=== PATIENT | female | born 1985 | race Caucasian/White ===

== ENCOUNTER → 2019-06-13 | Outpatient (CLI) | payer OTHER ==
--- NOTE | 2019-06-13 13:49 | US ---
EXAMINATION TYPE: Transabdominal DATE OF EXAM: 06/13/2019 1:17 PM COMPARISON: NONE CLINICAL HISTORY: Z36 Confirm dates. Confirm Dates, pt has no complaints at this time EXAM PERFORMED: Transabdominal (TA) EXAM MEASUREMENTS: GESTATIONAL AGE / DATING Physician Established: (8 weeks/6 days) EDC: 01/17/2020 Dates by LMP: (8 weeks/6 days) EDC: 01/17/2020 Dates by First Scan: No prior Dates by Current Scan for: (9 weeks/1 days) EDC: 01/15/2020 MATERNAL ANATOMY Uterus: 12.0 x 9.5 x 9.6 cm Right Ovary: 2.9 x 1.8 x 2.7 cm Left Ovary: 2.1 x 1.4 x 2.0 cm Post CDS / Adnexa: wnl Presence of free fluid: No Presence of corpus luteal cyst: Right Ovary= 1.5 x 1.4 x 1.9 cm GESTATION / SURVEY CRL: 2.4 cm (9 weeks/1 days) MSD: wnl Yolk Sac (normal less than 6mm): 3mm Heart Rate: 158 bpm Rhythm: Normal IUP: Live IUP Single, live IUP/ Complex area posterior to the gestational sac= 1.9 cm, separate from fetus within the myometrium. Additional small 7 mm subchorionic hemorrhage. IMPRESSION: 1. Single live intrauterine with a calculated sonographic age of 9 weeks and 1 day and esau mated date of delivery of 01/15/2020, concordant with menstrual age. 2. Small subchorionic hemorrhage measuring 7 mm, less than 25% the gestational sac diameter. 3. Heterogenous 1.9 cm area in the myometrium, possible small leiomyoma.
== END | disposition home or self-care (01) ==
LOC: RADUSWWP 12:58
PROVIDERS: ATTEND Obstetrics & Gynecology
DX: Z36.87 Encounter for antenatal screening for uncertain dates (principal); O46.91 Antepartum hemorrhage, unspecified, first trimester; Z3A.09 9 weeks gestation of pregnancy
CPT/HCPCS: 76801

== ENCOUNTER 2020-01-04 07:51 | Inpatient (IN) | payer OTHER ==
[2020-01-04] MEDS ORDERED: TERBUTALINE 1 MG/ML VIAL SQ PRN (08:28)
[2020-01-04] MEDS ORDERED: AMPICILLIN 2,000 MG in SODIUM CHLORIDE 0.9% 100 ML IVPB STA (08:28)
[2020-01-04] MEDS ORDERED: METHYLERGONOVINE 0.2 MG/ML 1 ML AMP IM PRN (08:28)
[2020-01-04] MEDS ORDERED: OXYTOCIN 10 UNIT/ML 1 ML VIAL IM PRN (08:28)
[2020-01-04] MEDS ORDERED: LIDOCAINE 0.5% (PF) 5 MG/ML (50 ML SDV) SQ PRN (08:28)
[2020-01-04] MEDS ORDERED: CARBOPROST TROMETHAMINE 250 MCG/ML 1 ML AMP IM PRN (08:28)
[2020-01-04] MEDS ORDERED: LACTATED RINGERS 1,000 ML IV SCH (08:30)
[2020-01-04] MEDS ORDERED: OXYTOCIN 30 UNITS/500 ML NS 30 UNIT in SALINE 1 500ML.BAG IV SCH (08:30)
[2020-01-04 08:53] LABS: Basophils % (A) 1 %; Eosinophils # (A) 0.1 k/uL (0-0.7); Eosinophils % (A) 1 %; HCT 37.2 % (34.0-46.0); HGB 12.5 gm/dL (11.4-16.0); Lymphocytes # (A) 1.1 k/uL (1.0-4.8); Lymphocytes % (A) 20 %; MCH 31.1 pg (25.0-35.0); MCHC 33.6 g/dL (31.0-37.0); MCV 92.5 fL (80.0-100.0); Mean Platelet Volume 8.6; Monocytes # (A) 0.2 k/uL (0-1.0); Monocytes % (A) 4 %; Neutrophils % (A) 71 %; Platelet Count 137 k/uL (150-450); RBC 4.02 m/uL (3.80-5.40); RDW 13.5 % (11.5-15.5); WBC 5.6 k/uL (3.8-10.6)
[2020-01-04] MEDS ORDERED: BUTORPHANOL 1 MG/ML 1 ML VIAL IV PRN (09:13)
--- NOTE | 2020-01-04 11:32 | P.HPOB ---
History of Present Illness H&P Date: 01/04/20 Chief Complaint: Spontaneous rupture of membranes This is a 34-year-old female 5 para 3 with an estimated date of confinement of 01/17/2020, estimated gestational age of 38-2/7 weeks, who presents to labor and delivery with complaints of spontaneous rupture of membra malini at approximately 5:45 AM this morning. She has been feeling irregular contractions since that time. course has been uncomplicated. labs: Hepatitis B surface antigen-negative RPR-nonreactive Rubella-immune Type-A- Antibody screen-negative RhoGAM was given at approximately 28 weeks. Hemoglobin-12.1 Random glucose-89 Obstetrical ultrasound-normal anatomy One hour Glucola-101 Group B streptococcus-positive Obstetrical history: . History of 3 vaginal deliveries at term and 1 miscarriage. Her third delivery was a home delivery of an 8 lbs. 14 oz. infant. Gynecologic history: No history of sexual transmitted diseases. Social history: She is . She is a homemaker. Review of Systems Constitutional: Denies chills, Denies fever Eyes: denies blurred vision, denies pain Ears, nose, mouth and throat: Denies headache, Denies sore throat Cardiovascular: Denies chest pain, Denies shortness of breath Respiratory: Denies cough Gastrointestinal: Reports abdominal pain (Irregular contractions) Genitourinary: Reports pelvic pain, Reports Musculoskeletal: Reports low back pain Integumentary: Denies pruritus, Denies rash Neurological: Denies numbness, Denies weakness Past Medical History Past Medical History: No Reported History Additional Past Medical History / Comment(s): History of a heart murmur History of Any Multi-Drug Resistant Organisms: None Reported Past Surgical History: No Surgical Hx Reported Past Anesthesia/Blood Transfusion Reactions: No Reported Reaction Past Psychological History: No Psychological Hx Reported Smoking Status: Never smoker Past Alcohol Use History: None Reported Past Drug Use History: None Reported - Past Family History Father Family Medical History: Hypertension, Myocardial Infarction (SD) Medications and Allergies Home Medications Medication Instructions Recorded Confirmed Type Loratadine [Claritin] 10 mg PO DAILY 01/04/20 01/04/20 History Pnv No.95/Ferrous Fum/Folic AC 1 each PO DAILY 01/04/20 01/04/20 History [ Multivitamin Tablet] Allergies Allergy/AdvReac Type Severity Reaction Status Date / Time No Known Allergies Allergy Verified 01/04/20 07:59 Exam Osteopathic Statement: *. No significant issues noted on an osteopathic structural exam other than those noted in the History and Physical/Consult. Vital Signs Temp Pulse Resp BP Pulse Ox 01/04/20 08:30 97.2 F L 74 15 125/70 98 Intake and Output 01/03/20 01/04/20 01/04/20 22:59 06:59 14:59 Other: Weight 67.132 kg Gen.: Well-developed well-nourished pleasant female in no acute distress HEENT: Within normal limits Heart: Regular rate and rhythm Lungs: Clear to auscultation bilaterally Abdomen: , nontender Cervix: Initially is 4-5 cm/60%/-2 station with positive clear fluid and positive amnisure. On my check currently she is 6 cm/60%/-2 station with another bag palpated. Artificial rupture membranes is carried out and clear fluid is again noted. heart tones: Category 1 Contractions: Irregular approximately 2-6 minutes apart Extremities: Negative Homans Results Result Diagrams: 01/04/20 08:40 Abnormal Lab Results - Last 24 Hours (Table) 01/04/20 Range/Units 08:40 Plt Count 137 L (150-450) k/uL Assessment and Plan (1) 38 weeks gestation of Current Visit: Yes Status: Acute Code(s): Z3A.38 - 38 WEEKS GESTATION OF SNOMED Code(s): 58909583 (2) Group B Streptococcus carrier, +RV culture, currently Current Visit: Yes Status: Acute Code(s): O99.820 - STREPTOCOCCUS B CARRIER STATE COMPLICATING SNOMED Code(s): 3456884214849 Plan: Admission for early active labor. Antibiotic prophylaxis for group B streptococcus. Expectant management. Oxytocin augmentation of labor.
--- NOTE | 2020-01-04 11:35 | P.MSEPDOC ---
Presenting Problems - Arrival Data Date of Arrival on Unit: 01/04/20 Time of Arrival on Unit: 08:30 Mode of Transport: Ambulatory - Complaint OB-Reason for Admission/Chief Complaint: Rule Out SROM Comment: Pt states that her water broke around 0545 this morning Medical History - Information : 5 Para: 3 Term: 3 : 0 Abortions: Spontaneous or Elective: 1 Number of Living Children: 3 - Gestational Age Gestational Age by MIGUELITO (wks/days): 38 Weeks and 2 Days Review of Systems - Review of Systems Constitutional: No problems Breast: No problems ENT: No problems Cardiovascular: No problems Respiratory: No problems Gastrointestinal: No problems Genitourinary: No problems Musculoskeletal: No problems Neurological: No problems Skin: No problems Vital Signs - Temperature Temperature: 97.2 F Temperature Source: Temporal Artery Scan - Pulse Pulse Oximetery Pulse Rate: 74 Pulse Assessment Method: Auscultation - Respirations Respiratory Rate: 15 O2 Sat by Pulse Oximetry: 98 - Blood Pressure Right Arm Blood Pressure: 125/70 Blood Pressure Mean: 88 Blood Pressure Source: Automatic Cuff Medical Screen Scoring (Pre) - Cervical Exam Dilation: 4-7 cm = 2 Membranes: Ruptured = 3 - Uterine Contractions Frequency: > or = 36 weeks =2 Duration: > 40 seconds = 2 Intensity: N/A - Maternal Vital Signs Maternal Temperature: N/A Maternal Blood Pressure: N/A Signs of Preeclampsia: N/A Maternal Respirations: N/A - Maternal Trauma Maternal Trauma: N/A - Assessment - Baby A Baseline FHR: 135 Heart Rate - NICHD Category: Category I (Normal) = 0 NST: Reactive Position: N/A Station: N/A - Total Score - Baby A Total Score - Baby A: 9 - Total Score - Baby B Total Score - Baby B: 9 - Total Score - Baby C Total Score - Baby C: 9 - Level of Risk - Baby A Level of Risk - Baby A: Medium (6-9) - Level of Risk - Baby B Level of Risk - Baby B: Medium (6-9) - Level of Risk - Baby C Level of Risk - Baby C: Medium (6-9) Physician Notification (Pre) - Physician Notified Physician Notified Date: 01/04/20 Physician Notified Time: 08:20 New Order Received: Yes Disposition - Disposition OB Disposition: Admit, LDRP Suite I agree with the RN Medical Screening Exam: Yes Risk & Benefit of care provided described in d/c instruction: Yes Diagnosis: ENCOUNTER FOR FULL-TERM UNCOMPLICATED DELIVERY
[2020-01-04] MEDS ORDERED: AMPICILLIN 1,000 MG in SODIUM CHLORIDE 0.9% 50 ML IVPB SCH (12:29)
--- NOTE | 2020-01-04 13:23 | P.PROBDLV ---
Vaginal Delivery Note - . Vaginal Delivery Note: The patient progressed to complete dilation after oxytocin augmentation of labor and artificial rupture membranes of a 4 bag. She did receive antibiotic prophylaxis while in labor. Once reaching complete dilation, she began pushing. Infant's head came to a crown. With one further push, the 's head delivered across the perineum followed by the anterior shoulder. Tight nuchal cord times one was doubly clamped and cut and reduced around the . With one further push the remainder the easily delivered and was placed on mother's abdomen. Nose and mouth were bulb suctioned. A viable female infant is noted with scores of 9 at 1 minute and 9 at 5 minutes and infant weight of 7 lbs. 9 oz. Cord blood was obtained secondary to Rh- status. Placenta delivered shortly thereafter, intact, with a three-vessel cord. Uterus contracted well after oxytocin was given and uterine massage was carried out. Inspection of the perineum revealed no perineal lacerations. Estimated blood loss is approximately 100 mL's. Both mother and are in stable condition.
[2020-01-04] MEDS ORDERED: LANOLIN CREAM 5 GM TUBE TOPICAL PRN (13:42)
[2020-01-04] MEDS ORDERED: ZOLPIDEM 5 MG TAB PO PRN (13:42)
[2020-01-04] MEDS ORDERED: SIMETHICONE 80 MG CHEWABLE PO PRN (13:42)
[2020-01-04] MEDS ORDERED: HYDROCORTISONE 2.5% RECTAL CREAM 30 GM TUBE RECTAL PRN (13:42)
[2020-01-04] MEDS ORDERED: diphenhydrAMINE 25 MG CAP PO PRN (13:42)
[2020-01-04] MEDS ORDERED: diphenhydrAMINE 50 MG/ML 1 ML VIAL IVP PRN ×2 (13:42)
[2020-01-04] MEDS ORDERED: diphenhydrAMINE 50 MG CAP PO PRN (13:42)
[2020-01-04] MEDS ORDERED: OXYTOCIN 20 UNITS/1000 ML NS 1,000 ML IV SCH (13:42)
[2020-01-04] MEDS ORDERED: BENZOCAINE/MENTHOL SPRAY 1 GM/SPRAY AEROSOL TOPICAL PRN (13:42)
[2020-01-04] MEDS: IBUPROFEN 600 MG TAB PO PRN ×2 (13:57→20:39)
[2020-01-04] MEDS: ACETAMINOPHEN TAB 325 MG TAB PO PRN (17:11)
[2020-01-05] MEDS: ACETAMINOPHEN TAB 325 MG TAB PO PRN ×2 (00:15→08:15)
[2020-01-05] MEDS: IBUPROFEN 600 MG TAB PO PRN (03:44)
[2020-01-05 04:12] VITALS: RESP 16
[2020-01-05] MEDS: SENNOSIDES-DOCUSATE SODIUM 1 EACH TAB PO SCH ×2 (04:12→08:15)
[2020-01-05 06:29] LABS: Basophils % (A) 0 %; Eosinophils # (A) 0.1 k/uL (0-0.7); Eosinophils % (A) 1 %; HCT 32.9 % (34.0-46.0); HGB 11.1 gm/dL (11.4-16.0); Lymphocytes % (A) 11 %; MCH 31.4 pg (25.0-35.0); MCHC 33.8 g/dL (31.0-37.0); MCV 92.9 fL (80.0-100.0); Mean Platelet Volume 8.8; Monocytes # (A) 0.3 k/uL (0-1.0); Monocytes % (A) 4 %; Neutrophils # (A) 7.7 k/uL (1.3-7.7); Neutrophils % (A) 83 %; Platelet Count 141 k/uL (150-450); RBC 3.54 m/uL (3.80-5.40); RDW 13.5 % (11.5-15.5); WBC 9.3 k/uL (3.8-10.6)
[2020-01-05 08:28] VITALS: BP 123/80; PULSE 94; TEMP 98
--- NOTE | 2020-01-05 08:39 | P.DS ---
Providers Date of admission: 01/04/20 08:31 Expected date of discharge: 01/05/20 Attending physician: Oksana Warren Primary care physician: Oksana Warren - Discharge Diagnosis(es) (1) 38 weeks gestation of Current Visit: Yes Status: Acute (2) Group B Streptococcus carrier, +RV culture, currently Current Visit: Yes Status: Acute Hospital Course: This is a 34-year-old female 5 para 3 at 38-2/7 weeks who presented with spontaneous rupture of membranes. She underwent oxytocin augmentation of labor and delivered vaginally a viable female infant with scores of 9 at 1 minute and 9 at 5 minutes and weight of 7 lbs. 9 oz. on 01/04/2020. Her course has been uncomplicated. She is breast-feeding. Lochia is decreasing. Her pain is well-controlled with ibuprofen. Vital signs are stable. Abdomen is soft with fundus firm and nontender. Extremities show negative Homans. Impression is status post vaginal delivery day #1. Plan is to discharge home today. Routine instructions are given she will be given a prescription for ibuprofen. She will also be given a prescription for a breast pump. She is advised follow-up in the office in 6 weeks for a check. She is advised to call the office if she has any further questions or concerns prior to her appointment time. Procedures: Spontaneous vaginal delivery of a viable female on 01/04/2020 Patient Condition at Discharge: Stable Plan - Discharge Summary New Discharge Prescriptions: New Ibuprofen [Motrin] 600 mg PO Q6HR PRN #60 tab PRN Reason: Mild Pain Or Fever >= 100.5 Continue Pnv No.95/Ferrous Fum/Folic AC [ Multivitamin Tablet] 1 each PO DAILY Loratadine [Claritin] 10 mg PO DAILY Discharge Medication List Loratadine [Claritin] 10 mg PO DAILY 01/04/20 [History] Pnv No.95/Ferrous Fum/Folic AC [ Multivitamin Tablet] 1 each PO DAILY 01/04/20 [History] Ibuprofen [Motrin] 600 mg PO Q6HR PRN #60 tab 01/05/20 [Rx] Follow up Appointment(s)/Referral(s): Oksana Warren DO [Primary Care Provider] - 1 Week Activity/Diet/Wound Care/Special Instructions: Instructions 1. Do not begin any exercise program for 3 weeks. 2. Do not resume sexual relations for 3 weeks or longer if uncomfortable. 3. You may take tub baths or showers at any time. 4. You may use tampons if desired after 3 weeks. 5. Keep the area of episiotomy (stitches) clean and dry. 6. If you are not nursing, wear a good fitting, supportive bra during the day and limit fluid intake for at least 1 week to prevent breast engorgement. 7. Call the office, [phone], within the next week to make appointment for your 6 week checkup if it has not already been made. 8. Report any of the following occurrences to the doctor promptly: a. Heavy, excessive bleeding b. Chills, fever c. Burning or frequency of urination d. Pain or redness and breasts if nursing e. Increasing pain or swelling in episiotomy (stitches). In addition to the above instructions, the following additional should be followed: 1. No heavy lifting or straining (exercising) until after 6 week checkup. 2. Keep abdominal incision clean and dry: You may wear a dressing if more comfortable. 3. Make office appointment for 10 days after going home or as instructed by her doctor. Discharge Disposition: HOME SELF-CARE
[2020-01-05] MEDS ORDERED: PRENATAL VIT-IRON-FOLIC ACID 1 EACH CAP PO SCH (09:00)
[2020-01-05] MEDS ORDERED: LORATADINE 10 MG TAB PO SCH (09:00)
[2020-01-05] MEDS ORDERED: Rhogam IMMUNE GLOBULIN 1,500 UNIT/1 ML IM ONE (12:56)
== END 2020-01-05 14:05 | disposition home or self-care (01) | DRG 807 ==
LOC: FBPOP 07:51 → 4FBP 08:31
PROVIDERS: ADMIT Obstetrics & Gynecology; ATTEND Obstetrics & Gynecology
PROC: 10E0XZZ Delivery of Products of Conception, External Approach (ICD-10-PCS; principal; 2020-01-04)
PROC: 3E0234Z Introduction of Serum, Toxoid and Vaccine into Muscle, Percutaneous Approach (ICD-10-PCS; 2020-01-05)
DX: O69.1XX0 Labor and delivery complicated by cord around neck, with compression, not applicable or unspecified (principal); Z37.0 Single live birth; O99.824 Streptococcus B carrier state complicating childbirth; O26.893 Other specified pregnancy related conditions, third trimester; Z67.11 Type A blood, Rh negative; Z3A.38 38 weeks gestation of pregnancy; Z79.899 Other long term (current) drug therapy; Z86.79 Personal history of other diseases of the circulatory system; Z82.49 Family history of ischemic heart disease and other diseases of the circulatory system
CPT/HCPCS: 59025; 84112; 85025; 85461; 86850; 86870; 86880; 86900; 86901; 99213

== ENCOUNTER → 2022-02-04 | Outpatient (CLI) | payer OTHER ==
--- NOTE | 2022-02-04 14:41 | US ---
EXAMINATION TYPE: Transabdominal DATE OF EXAM: 02/04/2022 2:23 PM COMPARISON: NONE CLINICAL HISTORY: Z36.89 CONFIRM DATES AND LIABILITY. Viability. No pain or bleeding. . EXAM PERFORMED: Transabdominal (TA) EXAM MEASUREMENTS: GESTATIONAL AGE / DATING Physician Established: Not yet established. Dates by LMP: (12 weeks/4 days) EDC: 08/15/2022 Dates by First Scan: This is first scan. Dates by Current Scan for: (13 weeks/4 days) EDC: 08/08/2022 MATERNAL ANATOMY Uterus: 16.9 x 12.9 x 10.4 cm. Anteverted. Right Ovary: 2.8 x 1.4 x 1.3 cm Left Ovary: 2.4 x 1.1 x 0.9 cm Post CDS / Adnexa: Appears wnl. Presence of free fluid: None seen. Presence of corpus luteal cyst: Not seen. Presence of subchorionic bleed: Complex area seen: 2.8 x 0.5 x 2.3 cm. GESTATION / SURVEY CRL: 7.48 cm (13 weeks/4 days) Yolk Sac (normal less than 6mm): 6 mm. Measured twice. Normal is less than 6 mm. Heart Rate: 147 bpm Rhythm: Normal IUP: Viable IUP Nuchal Translucency 10-14wks (normal less than 3mm): Not well seen Date of LMP: 11/08/2021 Beta HcG (if available): Not available IMPRESSION: 1. Single intrauterine gestation estimated at 13 weeks 4 days gestation based on the crown-rump lengt h. Cardiac activity measures 147 bpm. 2. Yolk sac is the borderline of enlarged measuring 6 mm. 3. Subchorionic hemorrhage measuring 2.8 x 0.5 x 2.3 cm may be present.
== END ==
LOC: RADUSWWP 13:29
PROVIDERS: ATTEND Obstetrics & Gynecology
DX: Z36.89 Encounter for other specified antenatal screening (principal)
CPT/HCPCS: 76801

== ENCOUNTER 2022-07-27 05:23 | Outpatient (CLI) | payer OTHER ==
[2022-07-27 08:01] VITALS: BP 114/63; PULSE 73; RESP 16; TEMP 97.9
--- NOTE | 2022-07-27 13:18 | P.MSEPDOC ---
Presenting Problems - Arrival Data Date of Arrival on Unit: 07/27/22 Time of Arrival on Unit: 05:23 Mode of Transport: Ambulatory - Complaint OB-Reason for Admission/Chief Complaint: Possible Onset of Labor Comment: Pt presents to triage with c/o contractions starting approximately 2300 last. night. Pt states contractions were about 4 minutes apart but seem to have spread out. Pt. also admits to feeling some pressure with contractions and stated that previously pain. with contractions was 2/10 but is not complaining of pain at this time. Medical History - Information : 6 Para: 4 Term: 4 : 0 Abortions: Spontaneous or Elective: 0 Number of Living Children: 4 - Gestational Age Gestational Age by MIGUELITO (wks/days): 37 Weeks and 2 Days - History Complications: GBS+ Review of Systems - Review of Systems Constitutional: No problems Breast: No problems ENT: No problems Cardiovascular: No problems Respiratory: No problems Gastrointestinal: No problems Genitourinary: No problems Musculoskeletal: No problems Neurological: No problems Skin: No problems Vital Signs - Temperature Temperature: 97.9 F Temperature Source: Oral - Pulse Pulse Oximetery Pulse Rate: 73 Pulse Assessment Method: Automatic Cuff - Respirations Respiratory Rate: 16 Oxygen Delivery Method: Room Air - Blood Pressure Right Arm Blood Pressure: 114/63 Blood Pressure Mean: 80 Blood Pressure Source: Automatic Cuff Medical Screen Scoring - Cervical Exam Dilation (cm): 2 Effacement (%): 60 Station: -3 Membranes: Intact - Uterine Contractions Frequency From (mins): 2 Frequency To (mins): 3 Duration From (seconds): 60 Duration To (seconds): 100 Intensity: Mild Resting: Soft to palpation - Assessment - Baby A Baseline FHR: 130 Heart Rate - NICHD Category: Category I (Normal) Physician Notification - Physician Notified Physician Notified Date: 07/27/22 Physician Notified Time: 06:30 Physician: Elver Morley New Order Received: Yes - Notification Comment Comment: Dr. Morley aware at 0628 about triage patient OB history, cervical check FHR NICHOLE, Contractions. Dr. Morley asked RN not to check patient until 0730. 0730 Dr. Morley in room talking with patient stating that if she has not had any cervical change she can be discharged. Maternal Triage Index - Non-Urgent/Priority 4 Non-Urgent Priority 4: Yes Criteria Met for Priority 4: Pt presents to triage with c/o contractions starting approximately 2300 last. night. Pt states contractions were about 4 minutes apart but seem to have spread out. Pt. also admits to feeling some pressure with contractions and stated that previously pain. with contractions was 2/10 but is not complaining of pain at this time. Disposition - Disposition OB Disposition: Discharge to home Discharge Date: 07/27/22 Discharge Time: 07:35 I agree with the RN Medical Screening Exam: Yes Case reviewed; plan agreed upon as documented in EMR&OBIX.: Yes Diagnosis: FALSE LABOR AT OR AFTER 37 COMPLETED WEEKS OF GESTATION
== END 2022-07-27 07:35 | disposition home or self-care (01) ==
LOC: FBPOP 05:23
PROVIDERS: ATTEND Obstetrics & Gynecology
DX: O47.1 False labor at or after 37 completed weeks of gestation (principal); Z3A.37 37 weeks gestation of pregnancy
CPT/HCPCS: 59025; G0463; 99213

== ENCOUNTER 2022-08-11 21:05 | Inpatient (IN) | payer OTHER ==
[2022-08-11] MEDS ORDERED: LIDOCAINE 0.5% (PF) 5 MG/ML (50 ML SDV) SQ PRN (21:48)
[2022-08-11] MEDS ORDERED: CARBOPROST TROMETHAMINE 250 MCG/ML 1 ML AMP IM PRN (21:48)
[2022-08-11] MEDS ORDERED: miSOPROStoL 200 MCG TAB PO PRN (21:48)
[2022-08-11] MEDS ORDERED: TERBUTALINE 1 MG/ML VIAL SQ PRN (21:48)
[2022-08-11] MEDS ORDERED: TRANEXAMIC ACID IN NACL,ISO-OS 1,000 MG in EMPTY BAG 1 BAG IV PRN (21:48)
[2022-08-11] MEDS ORDERED: OXYTOCIN 10 UNIT/ML 1 ML VIAL IM PRN (21:48)
[2022-08-11] MEDS ORDERED: METHYLERGONOVINE 0.2 MG/ML 1 ML AMP IM PRN (21:48)
[2022-08-11] MEDS ORDERED: LACTATED RINGERS 1,000 ML IV SCH (22:00)
[2022-08-11] MEDS ORDERED: OXYTOCIN 30 UNITS/500 ML NS 30 UNIT in SALINE 1 500ML.BAG IV SCH ×2 (22:00→22:45)
[2022-08-11 22:19] LABS: Basophils % (A) 0 %; Eosinophils # (A) 0.1 k/uL (0-0.7); Eosinophils % (A) 2 %; HCT 32.7 % (34.0-46.0); HGB 11.5 gm/dL (11.4-16.0); Lymphocytes # (A) 1.3 k/uL (1.0-4.8); Lymphocytes % (A) 20 %; MCH 32.4 pg (25.0-35.0); MCV 92.4 fL (80.0-100.0); Mean Platelet Volume 8.4; Monocytes # (A) 0.3 k/uL (0-1.0); Monocytes % (A) 5 %; Neutrophils # (A) 4.5 k/uL (1.3-7.7); Neutrophils % (A) 71 %; Platelet Count 166 k/uL (150-450); RBC 3.54 m/uL (3.80-5.40); RDW 13.2 % (11.5-15.5); WBC 6.4 k/uL (3.8-10.6)
[2022-08-11] MEDS ORDERED: AMPICILLIN 2,000 MG in SODIUM CHLORIDE 0.9% 100 ML IVPB ONE (22:30)
[2022-08-11] MEDS ORDERED: ZOLPIDEM 5 MG TAB PO PRN (22:43)
[2022-08-11] MEDS ORDERED: diphenhydrAMINE 50 MG/ML 1 ML VIAL IVP PRN ×2 (22:43)
[2022-08-11] MEDS ORDERED: diphenhydrAMINE 25 MG CAP PO PRN (22:43)
[2022-08-11] MEDS ORDERED: SIMETHICONE 80 MG CHEWABLE PO PRN (22:43)
[2022-08-11] MEDS ORDERED: BENZOCAINE/MENTHOL SPRAY 1 GM/SPRAY AEROSOL TOPICAL PRN (22:43)
[2022-08-11] MEDS ORDERED: LANOLIN CREAM 5 GM TUBE TOPICAL PRN (22:43)
[2022-08-11] MEDS ORDERED: diphenhydrAMINE 50 MG CAP PO PRN (22:43)
[2022-08-11] MEDS ORDERED: HYDROCORTISONE 2.5% RECTAL CREAM 30 GM TUBE RECTAL PRN (22:43)
--- NOTE | 2022-08-11 22:50 | P.HPOB ---
History of Present Illness H&P Date: 08/11/22 Chief Complaint: Labor 37 year old presents at 39 weeks in active labor. Her cervix is 6/80/-2. She is gian every 3 minutes. heart tones are 135 and category 1. Review of Systems All systems: negative Constitutional: Denies chills, Denies fever Eyes: denies blurred vision, denies pain Ears, nose, mouth and throat: Denies headache, Denies sore throat Cardiovascular: Denies chest pain, Denies shortness of breath Respiratory: Denies cough Gastrointestinal: Denies abdominal pain, Denies diarrhea, Denies nausea, Denies vomiting Genitourinary: Denies dysuria, Denies hematuria Musculoskeletal: Denies myalgias Integumentary: Denies pruritus, Denies rash Neurological: Denies numbness, Denies weakness Psychiatric: Denies anxiety, Denies depression Endocrine: Denies fatigue, Denies weight change Past Medical History Past Medical History: No Reported History Additional Past Medical History / Comment(s): History of a heart murmur. OB hx: 4 vaginal deliveries and one SAB. History of Any Multi-Drug Resistant Organisms: None Reported Past Surgical History: No Surgical Hx Reported Past Anesthesia/Blood Transfusion Reactions: No Reported Reaction Past Psychological History: No Psychological Hx Reported Smoking Status: Never smoker Past Alcohol Use History: None Reported Past Drug Use History: None Reported - Past Family History Father Family Medical History: Hypertension, Myocardial Infarction (SC) Medications and Allergies Home Medications Medication Instructions Recorded Confirmed Type Pnv No.95/Ferrous Fum/Folic AC 1 each PO DAILY 01/04/20 07/27/22 History [ Multivitamin Tablet] Allergies Allergy/AdvReac Type Severity Reaction Status Date / Time No Known Allergies Allergy Verified 08/11/22 21:11 Exam Osteopathic Statement: *. No significant issues noted on an osteopathic structural exam other than those noted in the History and Physical/Consult. Vital Signs Temp Pulse Resp BP Pulse Ox 08/11/22 21:39 97.6 F 76 16 111/69 98 Intake and Output 08/11/22 08/11/22 08/11/22 06:59 14:59 22:59 Other: Weight 68.492 kg Heart: Regular rate and rhythm Lungs: Clear to auscultation bilaterally Abdomen: Soft, nontender Extremities: Negative Homans sign Results Result Diagrams: 08/11/22 21:55 Abnormal Lab Results - Last 24 Hours (Table) 08/11/22 Range/Units 21:55 RBC 3.54 L (3.80-5.40) m/uL Hct 32.7 L (34.0-46.0) % Assessment and Plan (1) Normal labor Current Visit: Yes Status: Acute Code(s): O80 - ENCOUNTER FOR FULL-TERM UNCOMPLICATED DELIVERY; Z37.9 - OUTCOME OF DELIVERY, UNSPECIFIED SNOMED Code(s): 64542513 (2) Group B Streptococcus carrier, +RV culture, currently Current Visit: No Status: Acute Code(s): O99.820 - STREPTOCOCCUS B CARRIER STATE COMPLICATING SNOMED Code(s): 2487223009160 Plan: 1. admit to [facility] 2. expectant management 3. Iv antibiotics for GBS ppx.
--- NOTE | 2022-08-11 22:52 | P.PROBDLV ---
Vaginal Delivery Note - . Vaginal Delivery Note: 37 year old presents at 39 weeks in active labor. Her cervix is 6/80/-2. She is gian every 3 minutes. heart tones are 135 and category 1. Patient was admitted to [facility] on IV antibiotics were started. At 2217 amniotomy was performed when patient was 8 cm dilated, 100% effaced and 0 station. She progressed to complete, pushed and delivered a viable female over intact perineum at 20-29. Head delivered OA, anterior shoulder deli murtaza gentle downward guidance. A posterior shoulder and rest of body. Nose mouth bulb suctioned, cord clamped and cut, placed mother's abdomen. Apgars 8, 9, weight 8 lbs. 6 oz. Placenta delivered spontaneously, intact with three-vessel cord soon thereafter. Vagina, cervix, and perineum were inspected. No lacerations noted. Estimated blood loss 100 mL. Mother and baby in stable condition.
[2022-08-12] MEDS: IBUPROFEN 600 MG TAB PO PRN ×3 (01:45→23:36)
[2022-08-12] MEDS ORDERED: AMPICILLIN 1,000 MG in SODIUM CHLORIDE 0.9% 50 ML IVPB SCH (02:30)
[2022-08-12] MEDS ORDERED: Rhogam IMMUNE GLOBULIN 1,500 UNIT/1 ML IM ONE (05:46)
--- NOTE | 2022-08-12 05:53 | P.PNOBGVD ---
Subjective - Subjective Patient reports: Reports appetite normal, Reports voiding normally, Reports pain well controlled, Reports ambulating normally : doing well Objective - Latest Vital Signs Latest vital signs: Vital Signs Temp Pulse Resp BP Pulse Ox 08/12/22 00:42 97.4 F L 71 16 117/70 100 08/12/22 00:12 81 16 113/76 100 08/11/22 23:42 72 16 116/68 100 08/11/22 23:27 68 16 124/68 100 08/11/22 23:12 71 16 111/53 100 08/11/22 23:06 70 16 118/56 100 08/11/22 22:44 98.2 F 78 16 119/64 100 08/11/22 21:39 97.6 F 76 16 111/69 98 08/11/22 21:10 97.6 F 76 16 111/69 98 Intake and Output 08/11/22 08/11/22 08/12/22 14:59 22:59 06:59 Intake Total 509 Output Total 100 Balance -100 509 Intake: Intake, IV Titration 167 Amount Oxytocin 30 Units/500 ml 167 Ns 30 unit In Saline 1 500ml.bag @ Per Protocol IV .Q0M [facility] Rx#:[id number] Blood Product 342 Output: Estimated Blood Loss 100 Other: # Voids 1 1 Weight 68.492 kg - Exam Lungs: bilateral: normal Chest: Normal S1, Normal S2 Extremities: Present: normal Abdomen: Present: normal appearance, soft Uterus: Present: normal, firm - Labs Labs: Abnormal Lab Results - Last 24 Hours (Table) 08/11/22 Range/Units 21:55 RBC 3.54 L (3.80-5.40) m/uL Hct 32.7 L (34.0-46.0) % Assessment and Plan Assessment: day #1. Patient is resting without complaints. Vital signs are stable she's afebrile. Her baby did have a high white blood cell count is in special care nursery receiving IV antibiotics. Patient herself is feeling well without concerns. Plan today is to continue routine care discharge home tomorrow (1) Normal labor Current Visit: Yes Status: Acute Code(s): O80 - ENCOUNTER FOR FULL-TERM UNCOMPLICATED DELIVERY; Z37.9 - OUTCOME OF DELIVERY, UNSPECIFIED SNOMED Code(s): 07313080 (2) Group B Streptococcus carrier, +RV culture, currently Current Visit: No Status: Acute Code(s): O99.820 - STREPTOCOCCUS B CARRIER STATE COMPLICATING SNOMED Code(s): 2737550627337
[2022-08-12 06:07] LABS: Basophils % (A) 0 %; Eosinophils # (A) 0.1 k/uL (0-0.7); Eosinophils % (A) 1 %; HCT 30.7 % (34.0-46.0); HGB 10.6 gm/dL (11.4-16.0); Lymphocytes % (A) 11 %; MCH 31.8 pg (25.0-35.0); MCHC 34.5 g/dL (31.0-37.0); MCV 92.2 fL (80.0-100.0); Mean Platelet Volume 8.7; Monocytes # (A) 0.5 k/uL (0-1.0); Monocytes % (A) 5 %; Neutrophils # (A) 8.2 k/uL (1.3-7.7); Neutrophils % (A) 83 %; Platelet Count 134 k/uL (150-450); RBC 3.33 m/uL (3.80-5.40); RDW 13.1 % (11.5-15.5); WBC 9.9 k/uL (3.8-10.6)
[2022-08-12] MEDS: SENNOSIDES-DOCUSATE SODIUM 1 EACH TAB PO SCH ×2 (09:36→21:35)
[2022-08-12] MEDS: ACETAMINOPHEN TAB 325 MG TAB PO PRN ×2 (11:57→19:34)
[2022-08-12 23:50] VITALS: PULSE 71
--- NOTE | 2022-08-13 06:41 | P.PNOBGVD ---
Subjective - Subjective Patient reports: Reports appetite normal, Reports voiding normally, Reports pain well controlled, Reports ambulating normally : doing well Objective - Latest Vital Signs Latest vital signs: Vital Signs Temp Pulse Resp BP Pulse Ox 08/12/22 23:49 98.0 F 71 18 102/66 08/12/22 16:00 98.7 F 80 16 102/66 100 08/12/22 07:47 97.7 F 75 18 106/69 97 Intake and Output 08/12/22 08/12/22 08/13/22 14:59 22:59 06:59 Intake Total 400 400 Balance 400 400 Intake: Oral 400 400 - Exam Lungs: bilateral: normal Chest: Normal S1, Normal S2 Extremities: Present: normal Abdomen: Present: normal appearance, soft Uterus: Present: normal, firm Assessment and Plan Assessment: day #2. Patient is resting without complaints. Vital signs are st able she is afebrile. Uterus is firm nontender she's having normal lochia. Impression this is a normal course. Plan is to continue routine care discharge home later today. (1) Normal labor Current Visit: Yes Status: Acute Code(s): O80 - ENCOUNTER FOR FULL-TERM UNCOMPLICATED DELIVERY; Z37.9 - OUTCOME OF DELIVERY, UNSPECIFIED SNOMED Code(s): 80695840 (2) Group B Streptococcus carrier, +RV culture, currently Current Visit: No Status: Acute Code(s): O99.820 - STREPTOCOCCUS B CARRIER STATE COMPLICATING SNOMED Code(s): 7098245560076
--- NOTE | 2022-08-13 06:46 | P.DS ---
Providers Date of admission: 08/11/22 21:36 Expected date of discharge: 08/13/22 Attending physician: Oksana Warren Primary care physician: Stated None - Discharge Diagnosis(es) (1) Normal labor Current Visit: Yes Status: Acute (2) Group B Streptococcus carrier, +RV culture, currently Current Visit: No Status: Acute Hospital Course: Please see dictated H&P for intimate details on this patient's admission. In brief summary this is a pleasant 37-year-old 6 para 4 female 39-3/7 weeks gestation admitted by Dr. Martini in active labor. Patient quickly goes on have a vaginal delivery viable female infant. Please see dictated delivery note. patient is doing well felt stable for discharge home on day #[address] Warren on 6 weeks. Procedures: Normal spontaneous vaginal delivery Patient Condition at Discharge: Good Plan - Discharge Summary New Discharge Prescriptions: New Ibuprofen [Motrin] 600 mg PO Q6HR PRN #30 tab PRN Reason: Mild Pain (Scale 1 To 3) No Action Pnv No.95/Ferrous Fum/Folic AC [ Multivitamin Tablet] 1 each PO DAILY Discharge Medication List Pnv No.95/Ferrous Fum/Folic AC [ Multivitamin Tablet] 1 each PO DAILY 01/04/20 [History] Ibuprofen [Motrin] 600 mg PO Q6HR PRN #30 tab 08/13/22 [Rx] Follow up Appointment(s)/Referral(s): Oksana Warren DO [Doctor of Osteopathic Medicine] - 09/27/22 11:30 am Patient Instructions/Handouts: Vaginal Delivery (DC) Activity/Diet/Wound Care/Special Instructions: No intercourse or anything per vagina for 6 weeks. Please call if any fever, chills, excessive vaginal bleeding, and/or abdominal pain Discharge Disposition: HOME SELF-CARE
[2022-08-13] MEDS: IBUPROFEN 600 MG TAB PO PRN ×2 (08:22→14:21)
[2022-08-13] MEDS: SENNOSIDES-DOCUSATE SODIUM 1 EACH TAB PO SCH (08:22)
[2022-08-13 08:50] VITALS: BP 109/73; RESP 16; TEMP 97.7
== END 2022-08-13 14:33 | disposition home or self-care (01) | DRG 560 ==
LOC: FBPOP 21:05 → 4FBP 21:36
PROVIDERS: ADMIT Obstetrics & Gynecology; ATTEND Obstetrics & Gynecology
PROC: 10E0XZZ Delivery of Products of Conception, External Approach (ICD-10-PCS; principal; 2022-08-11)
PROC: 3E0234Z Introduction of Serum, Toxoid and Vaccine into Muscle, Percutaneous Approach (ICD-10-PCS; 2022-08-12)
DX: O99.824 Streptococcus B carrier state complicating childbirth (principal); B95.1 Streptococcus, group B, as the cause of diseases classified elsewhere; Z37.0 Single live birth; Z3A.39 39 weeks gestation of pregnancy; Z28.310 Unvaccinated for COVID-19; O26.893 Other specified pregnancy related conditions, third trimester; Z67.11 Type A blood, Rh negative; Z79.899 Other long term (current) drug therapy; Z86.79 Personal history of other diseases of the circulatory system
CPT/HCPCS: 59025; 85025; 85461; 86850; 86870; 86880; 86900; 86901; 99213